=== PATIENT | male | born 1945 | race Native Hawaiian/Other Pacific Islander ===

== ENCOUNTER 2018-08-13 06:54 | Day surgery (SDC) | payer MEDICARE, OTHER ==
[2016-12-12 08:24] VITALS: BMI 23.3
[2018-08-13] MEDS ORDERED: Lidocaine 4% (Laryng-O-Jet) Kit MM ONE (07:59)
[2018-08-13] MEDS ORDERED: Lactated Ringer's 1,000 ML IV ONE ×2 (08:25)
--- NOTE | 2018-08-13 08:27 | CP.SDSHP ---
Same Day Surgery H & P - History Proposed Procedure: EGD, Colonosocopy Pre-Op Diagnosis: Dyspepsia, family history of colon cancer, high risk screening - Previous Medical/Surgical History Comments: High cholesterol, BPH Previous Surgical History: None - Allergies Allergies: Allergies No Known Allergies Allergy (Verified 08/13/18 07:19) - Current Medications Current Medications: See reconciliation sheet - Physical Exam General Appearance: WD WN male in NAD Vital Signs: Vital Signs 08/13/18 07:00 Temperature 97 F L Pulse Rate 85 Respiratory 20 Rate Blood Pressure 129/85 O2 Sat by Pulse 100 Oximetry Mental Status: Alert & Oriented x3 Neuro: WNL Heart: WNL Lungs: WNL GI: WNL - {Optional Preform as Required} Abdomen: WNL - Impression Impression: Dyspepsia, Family history of colon cancer, high risk screening Pt. Evaluated Today:Candidate for Anesthesia & Procedure: Yes - Date & Time Date: 08/13/18 Time: 08:29 Short Stay Discharge - Short Stay Discharge Admitting Diagnosis/Reason for Visit: DYSPEPSIA//FAM HX OF MALIGN Disposition: HOME/ ROUTINE
[2018-08-13] MEDS ORDERED: Propofol 10 mg/ml Inj (20 ML) ONE (08:28)
[2018-08-13] MEDS ORDERED: Midazolam 2 MG/2 ML VIAL ONE (08:28)
[2018-08-13 09:23] VITALS: TEMP 97.8
[2018-08-13 09:48] VITALS: BP 112/67; PULSE 61; RESP 9; O2SAT 97
== END 2018-08-13 10:13 | disposition home or self-care (01) ==
LOC: C.ENDO 06:54
PROVIDERS: ATTEND Internal Medicine Gastroenterology
DX: K30 Functional dyspepsia (principal); Z12.11 Encounter for screening for malignant neoplasm of colon; Z80.0 Family history of malignant neoplasm of digestive organs; K64.0 First degree hemorrhoids; D12.6 Benign neoplasm of colon, unspecified; K44.9 Diaphragmatic hernia without obstruction or gangrene; K29.30 Chronic superficial gastritis without bleeding
CPT/HCPCS: 43239; 45384; 88305; J2250; J2704; J7120

== ENCOUNTER 2019-01-25 07:27 | Outpatient (CLI) | payer MEDICARE, OTHER | END 2019-01-25 07:28 | disposition home or self-care (01) | LOC: C.CARD 07:27 | DX: I10 Essential (primary) hypertension (principal); R06.02 Shortness of breath ==

== ENCOUNTER 2019-02-05 12:14 | Outpatient (CLI) | payer MEDICARE, OTHER | END 2019-02-06 12:15 | disposition home or self-care (01) | LOC: C.CTH 02-06 12:15 | DX: I71.9 Aortic aneurysm of unspecified site, without rupture (principal); I10 Essential (primary) hypertension ==

== ENCOUNTER 2019-02-06 10:51 | Outpatient (CLI) | payer MEDICARE, OTHER | END 2019-02-06 10:52 | disposition home or self-care (01) | LOC: C.LAB 10:51 | DX: E03.9 Hypothyroidism, unspecified (principal); R73.09 Other abnormal glucose; E78.2 Mixed hyperlipidemia; K76.9 Liver disease, unspecified; R82.90 Unspecified abnormal findings in urine ==